=== PATIENT | male | born 1980 | race Caucasian/White ===

== ENCOUNTER → 2021-03-18 | Outpatient (CLI) | payer MEDICARE, OTHER ==
[~2021-03-18] MED LIST: ALDACTONE 25MG25 MG PO; CARVEDILOL25 MG PO; CYMBALTA 30 MG30 MG PO; HYDROXYCHLOROQ200 MG PO; IBUPROFEN200 M1 PO; LIPITOR TAB 2020 MG PO; LISINOPRIL20 MG PO; NITROGLYCERIN PO; OMEPRAZOLE40 MG PO; PREGABALIN150 MG PO; TYLENOL ARTHRITIS PO
== END ==
LOC: HEART 5 09:49
DX: I08.0 Rheumatic disorders of both mitral and aortic valves (principal); I25.10 Atherosclerotic heart disease of native coronary artery without angina pectoris
CPT/HCPCS: 93306

== ENCOUNTER → 2021-04-15 | Outpatient (CLI) | payer MEDICARE, OTHER | LOC: CATH 04-08 08:00 → EDSTATUS 10:00 → CATH 10:00 | DX: I08.3 Combined rheumatic disorders of mitral, aortic and tricuspid valves (principal); I25.10 Atherosclerotic heart disease of native coronary artery without angina pectoris; I11.0 Hypertensive heart disease with heart failure; I50.9 Heart failure, unspecified; F41.9 Anxiety disorder, unspecified; F32.9 Major depressive disorder, single episode, unspecified; L93.0 Discoid lupus erythematosus; E78.00 Pure hypercholesterolemia, unspecified; Z98.61 Coronary angioplasty status; Z88.0 Allergy status to penicillin; Z88.8 Allergy status to other drugs, medicaments and biological substances; Z79.1 Long term (current) use of non-steroidal anti-inflammatories (NSAID); Z79.899 Other long term (current) drug therapy | CPT/HCPCS: 93005; 93312; 93320; J2250; J3010; J7040 ==

== ENCOUNTER 2021-06-24 09:29 | Emergency (ER) | payer MEDICARE, OTHER ==
[2021-06-24 10:38] LABS: HEMOGLOBIN 15.2 gm/dl (14.0-17.5); RED BLOOD COUNT 5.29 M/UL (4.20-5.50); WHITE BLOOD COUNT 7.1 K/UL (4.5-11.0)
[2021-06-24 11:06] LABS: BUN/CREATININE RATIO 23 (0-10)
[2021-06-24] MEDS ORDERED: DECADRON6 MG PO (12:56)
[2021-06-24] MEDS ORDERED: TESSALON PERLE100 MG PO (12:56)
[2021-07-31] MEDS ORDERED: BRINTELLIX20 MG PO (08:46)
== END 2021-06-24 14:38 | disposition home or self-care (01) ==
LOC: ER1 09:29
PROVIDERS: Emergency Medicine
DX: J40 Bronchitis, not specified as acute or chronic (principal); J04.0 Acute laryngitis; I10 Essential (primary) hypertension; I25.10 Atherosclerotic heart disease of native coronary artery without angina pectoris; Z88.0 Allergy status to penicillin; Z88.8 Allergy status to other drugs, medicaments and biological substances; Z20.822 Contact with and (suspected) exposure to COVID-19
CPT/HCPCS: 0240U; 71045; 80053; 82550; 82553; 83874; 84484; 85025; 87081; 87880; 93005; 99285; Q9967

== ENCOUNTER → 2021-07-31 | Outpatient (CLI) | payer MEDICARE, OTHER ==
[~2021-07-31] MED LIST changes: +BRINTELLIX20 MG PO; +DECADRON6 MG PO; +TESSALON PERLE100 MG PO
[2021-07-31 08:37] LABS: HEMOGLOBIN 13.7 gm/dl (14.0-17.5); RED BLOOD COUNT 4.91 M/UL (4.20-5.50); WHITE BLOOD COUNT 5.5 K/UL (4.5-11.0)
[2021-07-31 08:56] LABS: BUN/CREATININE RATIO 18 (0-10)
== END ==
LOC: CATH 08:03
PROVIDERS: Internal Medicine Cardiovascular Disease
DX: I25.118 Atherosclerotic heart disease of native coronary artery with other forms of angina pectoris (principal); I42.8 Other cardiomyopathies; I11.0 Hypertensive heart disease with heart failure; I50.9 Heart failure, unspecified; E78.00 Pure hypercholesterolemia, unspecified; I08.0 Rheumatic disorders of both mitral and aortic valves; F41.9 Anxiety disorder, unspecified; F32.9 Major depressive disorder, single episode, unspecified; F19.90 Other psychoactive substance use, unspecified, uncomplicated; Z20.822 Contact with and (suspected) exposure to COVID-19; Z79.891 Long term (current) use of opiate analgesic; Z98.890 Other specified postprocedural states; Z79.899 Other long term (current) drug therapy
CPT/HCPCS: 36415; 80048; 85025; 93005; 99152; C1769; C1894; J1644; J2250; J3010; J7030; Q9967; U0002

== ENCOUNTER → 2021-11-25 | Outpatient (CLI) | payer MEDICARE, OTHER | LOC: RAD 09:12 | DX: Z00.00 Encounter for general adult medical examination without abnormal findings (principal); R91.8 Other nonspecific abnormal finding of lung field; Z95.2 Presence of prosthetic heart valve | CPT/HCPCS: 71046 ==